=== PATIENT | male | born 1970 | race Caucasian/White ===

== ENCOUNTER 2017-07-17 09:24 | Emergency (ER) | payer BC ==
[2017-07-17 09:44] VITALS: BP 122/90; PULSE 81; TEMP 98.6; BMI 25.0
[2017-07-17] MEDS ORDERED: DIPHTH,PERTUSS(ACELL),TET 0.5 ML DISP.SYRIN IM ONE (09:51)
--- NOTE | 2017-07-17 10:46 | PDOC ---
History of Present Illness - General Chief Complaint: Laceration Stated Complaint: FINGER LACERATION Time Seen by Provider: 07/17/17 09:38 - History of Present Illness Initial Comments: 07/17/17 10:42 Chief complaint: Finger laceration History of present illness: 46 years old no significant past medical history cut his index finger on his left hand at the PIP joint while cutting a bagel this morning bleeding complaining of mild to moderate pain 5 out of 10 throbbing in nature persistent constant no exacerbating or alleviating factors. Past History - Past Medical History Allergies/Adverse Reactions: Allergies Allergy/AdvReac Type Severity Reaction Status Date / Time No Known Allergies Allergy Verified 07/17/17 09:27 Home Medications: Ambulatory Orders NK [No Known Home Medication] 07/17/17 COPD: No Other medical history: pt denies - Suicide/Smoking/Psychosocial Hx Smoking History: Never smoked Hx Alcohol Use: No Drug/Substance Use Hx: No Substance Use Type: None Review of Systems - Review of Systems Comments:: 07/17/17 10:42 ROS: A complete review of 10 out of 10 review of systems is taken and is negative apart from what is previously mentioned below and in the HPI. *Physical Exam - Vital Signs Last Vital Signs Temp Pulse Resp BP Pulse Ox 98.6 F 81 18 122/90 97 07/17/17 09:25 07/17/17 09:25 07/17/17 09:25 07/17/17 09:25 07/17/17 09:25 - Physical Exam Comments: 07/17/17 10:43 Vitals: Triage Vital signs reviewed General Appearance: no acute distress, well nourished well developed, Head: Atraumatic, Extremities: Full range of motion to all extremities, no cyanosis, clubbing, or edema Skin: 2 cm laceration to left PIP joint of the index finger, neurovascularly intact distally Neuro: Cranial Nerves 2-12 grossly intact, Strength intact to all extremities, Sensation intact to all extremities,gait normal Psych: normal mood, normal affect Procedures - Laceration/Wound Repair Left Wound Length: to 2.5 cm Wound Explored: clean Wound's Depth, Shape: superficial Irrigated w/ Saline: Yes Betadine Prep: Yes Anesthesia: 1% Lidocaine Suture Size/Type: 5:0 ED Treatment Course - Medications Given in the ED: ED Medications Discontinued Medications Generic Name Dose Route Start Last Admin Trade Name Yosef PRN Reason Stop Dose Admin Diphtheria/Tetanus/Acell Pertussis 0.5 ml 07/17/17 09:51 07/17/17 10:30 Boostrix - IM 07/17/17 09:52 0.5 ml .ONCE ONE Administration Medical Decision Making - Medical Decision Making 07/17/17 10:45 Facial laceration to left index finger. Combination of 50 sutures and Dermabond used to approximate wound. Patient tolerated procedure well. Return to ED in 7- 10 days for suture removal patient instructed to return immediately for any signs of infection Findings, the need for follow-up, strict return instructions discussed with patient. *DC/Admit/Observation/Transfer Diagnosis at time of Disposition: Laceration - Discharge Dispostion Admit: No - Referrals - Patient Instructions Printed Discharge Instructions: DI for Laceration Repair Additional Instructions: Keep covered for the next 36 hours. Then apply bacitracin twice a day and keep covered. Return to the emergency department immediately for any redness swelling fever pus streaking red lines or signs of infection. Return to the emergency department in 7-10 days for suture removal. - Post Discharge Activity
== END 2017-07-17 10:56 | disposition home or self-care (01) ==
LOC: FER 09:24
PROC: 0HQGXZZ Repair Left Hand Skin, External Approach (ICD-10-PCS; principal; 2017-07-17)
PROC: 3E0234Z Introduction of Serum, Toxoid and Vaccine into Muscle, Percutaneous Approach (ICD-10-PCS; 2017-07-17)
DX: S61.211A Laceration without foreign body of left index finger without damage to nail, initial encounter (principal); W26.0XXA Contact with knife, initial encounter; Y93.G3 Activity, cooking and baking; Y92.9 Unspecified place or not applicable
CPT/HCPCS: 90715; 99282-25